=== PATIENT | male | born 1970 | race Caucasian/White ===

== ENCOUNTER 2018-02-17 11:22 | Emergency (ER) | payer SELFPAY ==
[~2018-02-17] VITALS: Ht 180.3 cm; Wt 70.0 kg
[2018-02-17 11:40] VITALS: BP 130/63; PULSE 84; RESP 20; TEMP 97.9; O2SAT 99
[2018-02-17] MEDS ORDERED: LIDOCAINE 2%/EPINEPHrine 1:100,000 30ML MDV INFIL ONE (12:15)
[2018-02-17] MEDS ORDERED: LIDOCAINE 2%/EPINEPHrine 1:100,000 50ML MDV ONE (12:18)
[2018-02-17] MEDS ORDERED: ACETAMINOPHEN/HYDROcodone 325 MG/5 MG TAB PO ONE (12:45)
--- NOTE | 2018-02-17 13:46 | PD ---
HPI Chief Complaint: Skin Problem Time Seen by Provider: 12:11 Travel History International Travel<30 days: No Contact w/Intl Traveler<30days: No Traveled to known affect area: No History of Present Illness HPI 47 year male presents emergency department evaluation of a lesion under his left armpit. Says that this infection started approximately 5 days ago and decided to come in today because it is increasingly painful. Patient says he has a history of this infection previously and does not know why it has recurred today. Patient suspects that he wore dirty shirt which may have contributed to the infection but is unsure. Says the area is tender to palpation, mildly painful. PFSH Past Medical History Medical History: Denies Significant Hx Tetanus Vaccination: < 5 Years Influenza Vaccination: No Past Surgical History Abdominal Surgery: Yes (inguinal hernia repair x2) Oral Surgery: Yes Social History Alcohol Use: No Tobacco Use: No Substance Use: No Allergies-Medications (Allergen,Severity, Reaction): Coded Allergies: No Known Allergies (Unverified , 03/22/15) Reported Meds & Prescriptions Reported Meds & Active Scripts Active No Active Prescriptions or Reported Medications Review of Systems Except as stated in HPI: all other systems reviewed are Neg Physical Exam Narrative GENERAL: Well developed, well-nourished in no apparent distress SKIN: Focused skin assessment warm/dry. left axilla- puncta to mid axilla with spontaneous discharge. Area of fluctuance to proximal humerus, induration to more distal area. surrounding erythema of approximately 12 cm. HEAD: Atraumatic. Normocephalic. EYES: Pupils equal and round. No scleral icterus. No injection or drainage. ENT: No nasal bleeding or discharge. Mucous membranes pink and moist. NECK: Trachea midline. No JVD. CARDIOVASCULAR: Regular rate and rhythm. No murmur appreciated. RESPIRATORY: No accessory muscle use. Clear to auscultation. Breath sounds equal bilaterally. MUSCULOSKELETAL: No obvious deformities. No clubbing. No cyanosis. No edema. NEUROLOGICAL: Awake and alert. No obvious cranial nerve deficits. Motor grossly within normal limits. Normal speech. PSYCHIATRIC: Appropriate mood and affect; insight and judgment normal. Data Data Last Documented VS Vital Signs Date Time Temp Pulse Resp B/P (MAP) Pulse Ox O2 Delivery O2 Flow Rate FiO2 02/17/18 11:40 97.9 84 20 130/63 (85) 99 Orders Orders Lidocai-Epi 2%-1:100,000 Inj (Xylocaine- (02/17/18 12:15) Lidocai-Epi 2%-1:100,000 Inj (Xylocaine- (02/17/18 12:18) Acetamin-Hydrocod 325-5 Mg ([place] 5-325 (02/17/18 12:45) Cephalexin (Keflex) (02/17/18 14:00) Sulfamet-Trimeth Ds 800-160 Mg (Bactrim (02/17/18 14:00) Wound Culture And Gram Stain (02/17/18 14:02) Ed Discharge Order (02/17/18 14:03) [facility] Medical Decision Making Medical Screen Exam Complete: Yes Emergency Medical Condition: Yes Differential Diagnosis Left axilla abscess, erysipelas, sialitis Narrative Course 47 year male presents emergency department evaluation of a lesion under his left armpit. Says that this infection started approximately 5 days ago and decided to come in today because it is increasingly painful. Patient says he has a history of this infection previously and does not know why it has recurred today. Patient suspects that he wore dirty shirt which may have contributed to the infection but is unsure. Says the area is tender to palpation, mildly painful. Vital signs stable. His exam findings consistent with an inflamed hidradenitis suppuritiva/abscess. Incision and drainage performed. Wound culture. First dose of antibiotics administered today in the emergency department. Advised on wound care. Procedures Procedure Narrative INCISION AND DRAINAGE OF ABSCESS: The area was prepped and was sterilely draped. A subcutaneous wheal of 1 % Xylocaine with epinephrine with a total number 1 mL was used to anesthetize the area properly. A number 11 scalpel was used to make a 1-cm incision across the area of the abscess. The abscess was drained, complex loculations were broken down, and irrigated with normal saline. Cultures were obtained. Half inch iodoform packing was placed in the wound. Sterile dressing applied. Patient advised to have packing removed in two days. Diagnosis Primary Impression: Abscess Referrals: Primary Care Physician Additional Instructions: Start your first dose of antibiotic tomorrow. Follow up with your primary care physician within 2-3 days. Keep area clean and dry for 24 hours. I recommend you return for wound check in 48hrs. After 24 hours, you may bathe as normal but dry the area thoroughly. Change dressings daily. Try to avoid moving the gauze that is in your arm. If bleeding starts, apply pressure and elevate the area. If you developed increased redness, swelling, or pain return to the emergency department as this could be a sign of infection. Scripts No Active Prescriptions or Reported Meds Disposition: 01 DISCHARGE HOME Condition: Stable Shaye Armas February 17, 2018 13:46
[2018-02-17] MEDS ORDERED: SULFAMETHOXAZOLE-TRIMETHOPRIM DS 800-160 MG TAB PO ONE (14:00)
[2018-02-17] MEDS ORDERED: CEPHALEXIN MONOHYDRATE 500 MG CAP PO ONE (14:00)
[2018-02-17] MEDS ORDERED: BACT800T5 PO (14:15)
[2018-02-17] MEDS ORDERED: CEPH-460 PO (14:15)
== END 2018-02-17 14:37 | disposition home or self-care (01) ==
LOC: NEPD 11:22
DX: L02.412 Cutaneous abscess of left axilla (principal)
CPT/HCPCS: 10060; 86403; 87070; 87186; 87205

== ENCOUNTER 2018-02-19 14:00 | Emergency (ER) | payer SELFPAY ==
[~2018-02-19] VITALS: Ht 180.3 cm; Wt 70.0 kg
[~2018-02-19 14:00] MED LIST: BACT800T5 PO; CEPH-460 PO
[2018-02-19 14:39] VITALS: BP 131/62; PULSE 80; RESP 16; TEMP 98.9; O2SAT 100
[2018-02-19] MEDS ORDERED: BACT800T5 PO (14:59)
[2018-02-19] MEDS ORDERED: CLIN300C5 PO (14:59)
[2018-02-19] MEDS ORDERED: CLINDAMYCIN PHOS 600 MG/4 ML VIAL IM ONE (15:00)
[2018-02-19] MEDS ORDERED: SULFAMETHOXAZOLE-TRIMETHOPRIM DS 800-160 MG TAB PO ONE (15:00)
--- NOTE | 2018-02-19 15:02 | PD ---
HPI Chief Complaint: Skin Problem Time Seen by Provider: 14:57 Travel History International Travel<30 days: No Contact w/Intl Traveler<30days: No Traveled to known affect area: No History of Present Illness HPI 47-year-old male presents for wound recheck. The patient was seen here in February 17 with an abscess to the left axilla. Incision and drainage was performed. The patient was given prescriptions for Bactrim and Keflex. He presents today because symptoms appear to be about the same. Symptoms did not appear worse or better. Denies fevers or chills. He was given prescription for Bactrim and Keflex but he never got them filled because he forgot to. He has no other complaints at this time. PFSH Past Surgical History Abdominal Surgery: Yes (inguinal hernia repair x2) Oral Surgery: Yes Social History Alcohol Use: No Tobacco Use: No Substance Use: No Allergies-Medications (Allergen,Severity, Reaction): Coded Allergies: No Known Allergies (Unverified Adverse Reaction, Unknown, 02/19/18) Reported Meds & Prescriptions Reported Meds & Active Scripts Active Clindamycin (Clindamycin HCl) 300 Mg Cap 300 Mg PO TID 10 Days Bactrim DS (Sulfamethoxazole-Trimethoprim) 800-160 Mg Tab 1 Tab PO BID Keflex (Cephalexin) 500 Mg Cap 500 Mg PO Q8H 7 Days Bactrim DS (Sulfamethoxazole-Trimethoprim) 800-160 Mg Tab 1 Tab PO BID Review of Systems Except as stated in HPI: all other systems reviewed are Neg Physical Exam Narrative GENERAL: Well-developed well-nourished male in no acute distress SKIN: Warm and dry. Examination of the proximal inferior aspect of left arm reveals an area of induration, some fluctuance with purulent drainage. There is left axillary lymphadenopathy noted. HEAD: Atraumatic. Normocephalic. EYES: Pupils equal and round. No scleral icterus. No injection or drainage. ENT: No nasal bleeding or discharge. Mucous membranes pink and moist. NECK: Trachea midline. No JVD. CARDIOVASCULAR: Regular rate and rhythm. No murmur appreciated. RESPIRATORY: No accessory muscle use. Clear to auscultation. Breath sounds equal bilaterally. Data Data Last Documented VS Vital Signs Date Time Temp Pulse Resp B/P (MAP) Pulse Ox O2 Delivery O2 Flow Rate FiO2 02/19/18 14:39 98.9 80 16 131/62 (85) 100 Orders Orders Clindamycin Inj (Cleocin Inj) (02/19/18 15:00) Sulfamet-Trimeth Ds 800-160 Mg (Bactrim (02/19/18 15:00) Ed Discharge Order (02/19/18 14:58) [facility] Medical Decision Making Medical Screen Exam Complete: Yes Emergency Medical Condition: Yes Medical Record Reviewed: Yes Differential Diagnosis Abscess, cellulitis, hydradenitis, failed outpatient therapy Narrative Course Examination is consistent with draining abscess and cellulitis. Wound cultures growing MRSA. Patient has been noncompliant with his prescriptions. He will be given new prescriptions for Bactrim and clindamycin, first dose provided here. Discussed signs and symptoms that would warrant returning to the emergency room. Diagnosis Primary Impression: Cellulitis of left axilla Additional Impression: Abscess of left axilla Additional Instructions: Take the antibiotics exactly as prescribed. Warm compresses several times a day 15-20 minutes at a time. Return for new or worsening symptoms. Med/Other Pt SpecificInfo: Prescription(s) given Scripts Clindamycin (Clindamycin) 300 Mg Cap 300 MG PO TID for Infection for 10 Days, #30 CAP 0 Refills Prov: Nohemi Simpson MD 02/19/18 Sulfamethoxazole-Trimethoprim (Bactrim DS) 800-160 Mg Tab 1 TAB PO BID for Infection, #20 TAB 0 Refills Prov: Nohemi Simpson MD 02/19/18 Disposition: 01 DISCHARGE HOME Condition: Stable Rajendra Donnelly February 19, 2018 15:02
== END 2018-02-19 15:21 | disposition home or self-care (01) ==
LOC: NEPD 14:00
DX: L03.112 Cellulitis of left axilla (principal); L02.412 Cutaneous abscess of left axilla
CPT/HCPCS: 96372

== ENCOUNTER 2018-02-22 18:20 | Emergency (ER) | payer SELFPAY ==
[~2018-02-22] VITALS: Ht 180.3 cm; Wt 70.0 kg
[~2018-02-22 18:20] MED LIST changes: +CLIN300C5 PO
[2018-02-22 18:22] VITALS: BP 126/64; PULSE 85; RESP 20; TEMP 97.9; O2SAT 97
--- NOTE | 2018-02-22 20:40 | PD ---
HPI Chief Complaint: Wound/Suture/Staple Re-Check Time Seen by Provider: 20:21 Travel History International Travel<30 days: No Contact w/Intl Traveler<30days: No Traveled to known affect area: No History of Present Illness HPI 47-year-old white male returns to the ER for a recheck of his left arm abscess. Patient states that he filled 1 of the 2 antibiotics due to finances. He states that the area still has been draining pus and is tender. He admits to erythema. He denies any fever chills. He states that is slowly improving. He has had no nausea vomiting. Symptoms are moderate. Exacerbated by palpation. Slow alleviation with incision and drainage. PFSH Past Medical History Narrative Medical Left arm abscess Tetanus Vaccination: < 5 Years Past Surgical History Abdominal Surgery: Yes (inguinal hernia repair x2) Oral Surgery: Yes (wisdom teeth) Social History Alcohol Use: No Tobacco Use: No Substance Use: No Allergies-Medications (Allergen,Severity, Reaction): Coded Allergies: No Known Allergies (Unverified Adverse Reaction, Unknown, 02/19/18) Reported Meds & Prescriptions Reported Meds & Active Scripts Active Bactrim DS (Sulfamethoxazole-Trimethoprim) 800-160 Mg Tab 1 Tab PO BID Review of Systems General / Constitutional: No: Fever Eyes: No: Visual changes HENT: No: Headaches Cardiovascular: No: Chest Pain or Discomfort Respiratory: No: Shortness of Breath Gastrointestinal: No: Abdominal Pain Genitourinary: No: Dysuria Musculoskeletal: Positive: Pain Skin: Positive Rash, Positive Lesions Neurologic: No: Weakness Psychiatric: No: Depression Endocrine: No: Polydipsia Hematologic/Lymphatic: No: Easy Bruising Physical Exam Narrative GENERAL: This is a well-nourished, well-developed patient, in no apparent distress. SKIN: Patient has a abscess to the left vulvar upper inner arm. The abscess still has an area of fluctuance distally. The abscess cavity measures approximately 4 x 4 centimeters. Surrounding erythema. Positive tenderness. No lymphangitic streaking. No axillary involvement. HEAD: Atraumatic. Normocephalic. EYES: PERRL, EOMI, no discharge or injection. No scleral icterus. EARS: Clear NOSE: Nasal turbinates appear normal. THROAT: Mucosa pink and moist. Airway patent. NECK: Trachea midline. supple, moves head freely. LUNGS: Clear to auscultation. CV: Regular in rhythm. ABDOMEN: Soft nontender. EXT: No clubbing cyanosis or edema. Data Data Last Documented VS Vital Signs Date Time Temp Pulse Resp B/P (MAP) Pulse Ox O2 Delivery O2 Flow Rate FiO2 02/22/18 18:22 97.9 85 20 126/64 (84) 97 MDM Medical Decision Making Medical Screen Exam Complete: Yes Emergency Medical Condition: Yes Medical Record Reviewed: Yes Differential Diagnosis MDM: High Differential diagnoses: Abscess, folliculitis, cellulitis, lymphangitis, abrasion, contact dermatitis Narrative Course Patient's abscess requires repeat incision and drainage. Patient encouraged to continue his antibiotics. Procedures Procedure Narrative Incision and drainage left arm abscess: The skin is prepped with Hibiclens. 1% lidocaine is instilled locally. After adequate anesthesia a 1 cm incision is made at the distal end of the abscess. Cosmo pickups were placed through the wound and out the new incision. A [place] drain quarter inches pulled through the both of the incision sites. The abscess is decompressed. Dressing is applied. Patient tolerates procedure well without complications. Diagnosis Primary Impression: Left arm abscess Patient Instructions: General Instructions Additional Instructions: Rest. Elevation. keep clean and dry. remove the packing in 3 days. Daily wound care with soap, water and Neosporin. Three Advil every 6 hours. Doxycycline, Septra DS, and Lortab. Follow-up with a primary care doctor in one week. Return to the ER for any problems. Med/Other Pt SpecificInfo: No Meds Exist/No RX given, Wound Care Disposition: 01 DISCHARGE HOME Condition: Stable Kameron Donis Feb 22, 2018 20:40
== END 2018-02-22 21:03 | disposition home or self-care (01) ==
LOC: NEPD 18:20
DX: L02.414 Cutaneous abscess of left upper limb (principal)
CPT/HCPCS: 10060